=== PATIENT | female | born 2000 | race African-American/Black ===

== ENCOUNTER 2024-06-24 06:28 | Outpatient (REF) | payer OTHER, SELFPAY ==
--- NOTE | ~2024-06-24 | US_ITS ---
EXAMINATION: US PELVIS CLINICAL INFORMATION: Irregular menses. 23-year-old, LMP May 2024 COMPARISON: None available. TECHNIQUE: Ultrasound of the pelvis is performed using both transabdominal and transvaginal transducers along with Doppler. Transvaginal imaging is performed due to inadequate visualization transabdominally. FINDINGS: Uterus: The uterus is anteverted and measures 7.7 x 3.1 x 5.6 cm. The double wall endometrial thickness is 2.0 cm, heterogeneous in appearance with focal vascular thickening. An endometrial polyp cannot be excluded. The uterus is smooth in contour and has normal myometrial echogenicity. No visible fibroid. Adnexa: Both ovaries are visualized. There is normal color flow to the adnexa. There is no ovarian torsion. There is no pelvic ascites or fluid collection. Right ovary measures 3.4 x 2.1 x 3.4 cm. Left ovary measures 2.5x 2.1 x 2.5 cm. US/US pelvic and transvaginal IMPRESSION: The double wall endometrial thickness is 2.0 cm, heterogeneous in appearance with focal vascular thickening. An endometrial polyp cannot be excluded. Recommend further evaluation with sonohysterogram. Electronically signed by: Callie Aly MD 06/24/2024 09:00 PM EDT RP
== END 2024-06-24 06:29 | disposition home or self-care (01) ==
LOC: HO.UMASIMG 06:28
PROVIDERS: Visit Provider Nurse Practitioner Women's Health
DX: N92.6 Irregular menstruation, unspecified (principal)
CPT/HCPCS: 76830; 76856

== ENCOUNTER 2025-03-03 12:17 | Outpatient (REF) | payer OTHER, SELFPAY ==
--- NOTE | ~2025-03-03 | US_ITS ---
EXAMINATION: US PELVIS CLINICAL INFORMATION: 24-year-old female, right lower quadrant abdominal pain. COMPARISON: 06/24/2024. TECHNIQUE: Ultrasound of the pelvis is performed using both transabdominal and transvaginal transducers along with Doppler. Transvaginal imaging is performed due to inadequate visualization transabdominally. FINDINGS: Uterus: The uterus is anteverted, retroflexed, and measures 7.8 x 4.7 x 5.6 cm. The cervix has a normal appearance. The double wall endometrial thickness is 15 mm. It is uniform without irregularity. The uterus is smooth in contour and has normal myometrial echogenicity. No visible fibroid. Adnexa: Both ovaries are visualized. There is normal color flow to the adnexa. There is no ovarian torsion. Trace anechoic free pelvic fluid, likely physiologic. Right ovary measures 4.8 x 4.2 x 3.7 cm. Volume = 39.3 mL. There is a complicated appearing 3.0 x 2.3 x 1.8 cm intraovarian cysts, with lacy echoes, appearance consistent with a hemorrhagic cyst. No internal color Doppler signal. No soft tissue elements. Left ovary measures 2.8 x 2.2 x 1.9 cm. Volume = 6.2 mL. Normal sonographic appearance. US/US pelvic and transvaginal IMPRESSION: 1. Normal endometrium and uterus. 2. Right ovary demonstrates a 3.0 x 2.3 x 1.8 cm probable hemorrhagic cyst. 3. Normal left ovary. Electronically signed by: Sherif Richter MD 03/03/2025 03:02 PM EDT
--- OUTSIDE RECORDS SUMMARY | 2025-03-03 13:20 | XMS_ITS | Continuity of Care Document ---
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 Name Role Phone Sunshine Mcghee MD Unavailable Unavailable Allergies, Adverse Reactions, Alerts Substance Reaction Status Criticality No Known Allergies Active No Inform ation Medications Medication Instructions Dosage Effective Dates (start - stop) Status Comments JUNEL 1 MG-20 MCG TABLET TAKE 1 TABLET BY MOUTH EVERY DAY - Active Pepcid 20 mg tablet take 1 tablet by oral route 2 times every day 20 MG - Active norethindrone acetate 1 mg-ethinyl estradiol 20 mcg tablet take 1 tablet by oral route every day 1.00 tablet - No Longer Active Procedures Procedure Date US PELVIC COMPLE[place] Trans[place]/ [place] [id number] OFFICE/OUTPATIENT VISIT, EST OFFICE/OUTPATIENT VISIT, EST US PELVIC COMPLE[place]/ [place] [id number] US PELVIC COMPLETE [place]/ [place] [id number] Advance Directives Directive Yes / No Effective Date File Name No Information Encounters Encounter Description Practice Location Reason(s) For Visit Diagnoses Date Provider Providers Copied on Encounter [facility], [address] [place] [address], [id number], tel:[phone] [place] No Information Taz Gonsalez. [address] [place] [address], [id number], [place]. tel:[phone] [facility], [address] [place] [address], [id number], [place] tel:[phone] [facility] Information 1 Jessica Mercado. [address] [place] [address], [id number], [place]. tel:[phone] Referring Provider: Sunshine Mcghee, [address] [place] [address], [place], [address]. tel:[phone] OFFICE/OUTPA TIENT VISIT, [facility] [place] [facility] [place], [address] [place] [address], [facility], [place] tel:[phone] [facility] ([facility]) Encounter for surveillance of contraceptiv e pillsRight lower quadrant pain 1 Taz Gonsalez. [address] [place] [address], [id number], [place]. tel:[phone] Referring Provider: Sunshine Mcghee, [address] [place] [address], [place], [address]. tel:[phone] OFFICE/OUTPA TIENT VISIT, [facility] [place] [facility] [place], [address] [place] [address], [id number], [place] tel:[phone] [facility] / hx ovarian cyst (chief complaint) Dysmenorrhea Encounter for initial prescription of contraceptiv e pillsEncount er for other general advice on contraceptio n 1 Taz Gonsalez. [address] [place] [address], [id number], [place]. tel:[phone] Referring Provider: Sunshine Mcghee, [address] [place], [place] [address] , [place], [address]. tel:[phone] [facility], [address] [place] [address], [facility], tel:[phone] [place] No Information 1 Jessica Mercado. [address] [place] [address], [id number], . tel:[phone] Referring Provider: Adam CHRISTIAN, [address] [place] [address], [id number]. tel:[phone] [facility], [address] [place] [address], [facility], tel:[phone] [facility] No Information 0 Nuha Bansal. [address] [place] [address], [id number], . tel:[phone] Referring Provider: Adam CHRISTIAN, [address] [place] [address], [address]. tel:[phone] [facility], [address] [place] [address], [facility], tel:[phone] [facility] Dysmenorrhea (chief complaint) Dysmenorrhea Pelvic pain 0 Deborah Medina. [address] [place] [address], [id number], . tel:[phone] Referring Provider: Shellie Edgar, [address] [place] [address], [id number]. tel:[phone] Family History Family Member Type Diagnosis Age At Onset Mother Problem hypertension Payers Payer name Insurance type Covered democrat ID Anne Marie jacobson(s) [facility] [id number] Social History Type Description Quantity Date Captured Comments Sex Female Smoking Status No Information Chief Complaint And Reason For Visit No Information Reason For Referral Reason For Referral No Information Plan Of Treatment Date Type Action Status Goal HPV (1st). Due on 1 due Goal PAP. Due on due Goal HPV (1st). Due on 1 due Goal PAP. Due on due Goal HPV (1st). Due on 0 due Future Order: Radiology Order US - Pelvic with Endo Vag W/WO 3d Rendering ([id number]), Sent on: Sent Future Order: Radiology Order US - Pelvic with Endo Vag W/WO 3d Rendering ([id number]), Ordered on: Ordered Future Order: Radiology Order US - Pelvic with Endo Vag W/WO 3d Rendering ([id number]), Sent on: Sent Future Order: Radiology Order US - Pelvic with Endo Vag W/WO 3d Rendering ([id number]), Sent on: Sent History Of Present Illness Encounter Date Complaint History Of Prese nt Illness pelvic pain (comments) Comments: Patient presents to discuss her control and to discuss pelvic pain. She has been having discomfort in her right pelvis for almost a week at this time. She has had several days that the pain comes and goes all day. It is moderate in intensity when it does occur. She has been noted to have ovarian cysts in the past which we have been monitoring. She was started on OCPs several months ago to help with her periods as well as prevention of ovarian cysts. [place] is [place] out of [place] next [place]. pelvic pain The client is pr emenopausal. Last menstrual period was 02/15/2021.The client denies any chills, dysuria, fever or urinary frequency. pelvic pain / hx ovarian cyst pelvic pain / hx ova hua cyst (comments) Comments: Patient presents to discuss her painful periods and ovarian cysts. She reports her periods have started to become much more painful over the last year. She gets some relief from OTC medications but not complete relief. She often cannot perform her regular daily activities when she is on her period. She was found to have a left ovarian cyst a few months ago and was found to have a right ovarian cyst on her f/u U/S. She denies current pain. No hx of clotting disorder; no migraines with aura. She has never been on control. Dysmenorrhea Onset: 5 months ago. Last menstrual period was on 09/15/2020. Pertinent negatives include hirsutism.Additional information: began increasing over the summer, taking midol motrin for pain, pain b/t menses also last 6 wks there most days, 6 on scale and taking same meds, for pain otc never sexually active, occ ovulation pain and spotting,, bleeding usually wnl. Functional Status Date Functional Assessmen t No Information Instructions Date Instruction Additional Infor truong U/S ordered to asses s right adnexa. Continue with OCPs. Will f/u on ultrasound results to discuss plan moving forward. Related to Right lower quadrant pain We discussed treatme nt options including scheduled NSAIDS vs control. She would like to start OCPs. We also reviewed how OCPs can help prevent against ovarian cysts in the future. She has no CI. DVT/PE risks reviewed. Rx sent today. Moving to [place] in a few months, call prior to leaving if she doesn't see an improvement in her symptoms. Will repeat U/S prior to moving to f/u on her cyst. Related to Dysmenorrhea pain precautions giv en pt to take otc meds as directed on labelpelvic us ordered to er for severe paint 19 c 9 Related to Pelvic pain discussed briefly bc to lessen pain with menses f/u pending the results of us Related to Dysmenorrhea Assessments Type Assessment Date No Information Patient Care Teams Name Effective Dates (start - stop) Status Members No Information
--- OUTSIDE RECORDS SUMMARY | 2025-03-03 13:20 | XMS_ITS | Patient Health Record ---
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 Name Role Phone Rashel Boyle Unavailable [phone] Aman Ashton PA-C Unavailable Unavailable Allergies No Known Allergies Reason For Referral No Information Medications Medication SIG (Take, Route, Fr equency, Duration) Notes Start Date End Date Status Famotidine 20 MG Oral 11/23/2020 Ac tive Problems Problem Type SNOMED Code ICD Code Onset Dates Problem Status W/U Status Risk Notes Problem Lymphadenopathy (16305527) R59.1-Cervical Lymphadenopathy (R59.1) Active confirmed Problem Hypertrophy of adenoids (524833629) J35.2-Hypertrophy of adenoids (J35.2) Active confirmed Problem Gastroesophageal reflux disease (926948051) K21.7-Yyufhj-gqsls ageal reflux disease without esophagitis (K21.9) Active confirmed Problem Scoliosis (619947435) M41.9-Scoliosis, unspecified (M41.9) Active confirmed Problem Bilateral tinnitus (2583442308871) H93.13-Tinnitus, bilateral (H93.13) Active confirmed Problem Impacted cerumen (53351176) H61.23-Impacted cerumen, bilateral (H61.23) Active confirmed Plan Of Treatment No Information Insurance Providers Payer Name Payer Address Payer Phone Subscriber Number Group Number Insured Name Patient Relationship to Insured Coverage Start Date Coverage End Date [facility] Plan [address] [address] [place] [phone] [id number] Sisi Webb Self - patient is the insured Medical (General) History Surgical History Surgery Date(Month/Year) None
== END 2025-03-03 12:18 | disposition home or self-care (01) ==
LOC: HO.UMASIMG 12:17
PROVIDERS: Visit Provider Family Medicine
DX: R10.31 Right lower quadrant pain (principal)
CPT/HCPCS: 76830; 76856

== ENCOUNTER → 2025-03-03 13:30 | Outpatient (BNV) | payer OTHER, SELFPAY | PROVIDERS: Visit Provider Radiology Diagnostic Radiology | DX: N83.201 Unspecified ovarian cyst, right side (principal) | CPT/HCPCS: 76830; 76856 ==